=== PATIENT | male | born 1945 | race Caucasian/White ===

== ENCOUNTER → 2019-11-22 | Outpatient (CLI) | payer MEDICARE, OTHER ==
[~2019-11-22] MED LIST: AMLO-150 PO; ASPI-515 PO; Bisoprolol PO; EZET10TA70 PO; GUAI200T11 PO; INSU100I11 SQ-INSULIN; INSU100I13 SQ-INSULIN; LIDO700A20 TD; LIDOCAINE 1%, 10ML ONE; SIMV20TA19 PO; TRAM50TA2 PO; losartan PO; methylprednisolone PO
== END | disposition home or self-care (01) ==
LOC: RAD 09:57
PROVIDERS: ATTEND Nurse Practitioner Family
DX: J86.9 Pyothorax without fistula (principal); J98.11 Atelectasis; Z79.4 Long term (current) use of insulin; Z79.899 Other long term (current) drug therapy; Z72.89 Other problems related to lifestyle; Z87.891 Personal history of nicotine dependence
CPT/HCPCS: 32555; 71045; 87070; 87205

== ENCOUNTER 2020-01-02 11:06 | Outpatient (CLI) | payer MEDICARE, OTHER ==
[~2020-01-02 11:06] MED LIST changes: -LIDOCAINE 1%, 10ML ONE
== END 2020-01-02 23:59 | disposition home or self-care (01) ==
LOC: RAD 11:06
PROVIDERS: ATTEND Internal Medicine
DX: J98.4 Other disorders of lung (principal); J98.11 Atelectasis; J86.9 Pyothorax without fistula
CPT/HCPCS: 71046